=== PATIENT | male | born 1980 | race African-American/Black ===

== ENCOUNTER 2019-03-11 16:38 | Emergency (ER) | payer OTHER ==
[~2019-03-11] VITALS: Ht 180.3 cm; Wt 88.5 kg
[2019-03-11] MEDS ORDERED: NORFLEX100 MG PO (17:59)
[2019-03-11] MEDS ORDERED: NAPROSYN500 MG PO (17:59)
[2019-03-11 18:18] VITALS: BP 140/87
== END 2019-03-11 18:20 | disposition home or self-care (01) ==
LOC: ER 16:38
DX: S39.012A Strain of muscle, fascia and tendon of lower back, initial encounter (principal); S46.912A Strain of unspecified muscle, fascia and tendon at shoulder and upper arm level, left arm, initial encounter; S16.1XXA Strain of muscle, fascia and tendon at neck level, initial encounter; V43.52XA Car driver injured in collision with other type car in traffic accident, initial encounter; Y93.I9 Activity, other involving external motion; Y92.410 Unspecified street and highway as the place of occurrence of the external cause; Y99.8 Other external cause status

== ENCOUNTER 2019-11-02 19:46 | Inpatient (IN) | payer OTHER ==
[~2019-11-02] VITALS: Ht 180.3 cm; Wt 83.6 kg
[~2019-11-02 19:46] MED LIST: NAPROSYN500 MG PO; NORFLEX100 MG PO
[2019-11-02 20:23] LABS: AMP/METHAMP Negative (Negative); BARBITURATES Negative (Negative); BENZODIAZEPINES Negative (Negative); COCAINE Negative (Negative); METHADONE Negative (Negative); OPIATES Negative (Negative); PCP Negative (Negative)
[2019-11-02 21:25] LABS: HEMATOCRIT 41.6 % (42.0-52.0); HEMOGLOBIN 13.6 gm/dL (14.0-18.0); MCH 29.8 pg (26.0-34.0); MCHC 32.8 g/dL (28.0-37.0); RBC 4.57 mil/uL (4.50-6.00); RDW 14.6 % (10.5-14.5); WBC 20.4 thou/uL (4.0-11.0)
--- NOTE | 2019-11-02 21:35 | NUR ---
PERMISSION TO TELL MOTHER PT IS HERE OBTAINED FROM PT
[2019-11-02 21:41] LABS: ANION GAP 16 mmol/L (7-16); BUN 13 mg/dL (7-18); CHLORIDE 102 mmol/L (98-107); CO2 21 mmol/L (21-32); CREATININE 1.5 mg/dL (0.7-1.3); GLUCOSE 85 mg/dL (74-106); POTASSIUM 4.1 mmol/L (3.5-5.1); SODIUM 139 mmol/L (136-145)
[2019-11-02 21:46] LABS: ALBUMIN 4.5 g/dL (3.4-5.0); DIRECT BILIRUBIN < 0.1 mg/dL (<0.1-0.2); SGOT 38 U/L (15-37); SGPT 38 U/L (30-65); TOTAL BILIRUBIN 0.3 mg/dL (<0.1-1.0); TOTAL PROTEIN 8.2 g/dL (6.4-8.2); TROPONIN-I <0.06 ng/mL (<0.06)
[2019-11-03 05:47] VITALS: BP 115/69
[2019-11-03 05:59] VITALS: BP 115/56
[2019-11-03 06:02] LABS: CSF GLUCOSE 70 mg/dL (40-70)
[2019-11-03 06:25] VITALS: BP 141/81
[2019-11-03 07:06] LABS: CSF CLARITY CLEAR; CSF COLOR COLORLESS; VOLUME 16 ml
[2019-11-03 07:07] LABS: CSF EOSINOPHILS 0 %; CSF LYMPHOCYTES 1 %; CSF MONOCYTES 6; CSF POLYS 91; CSF POLYS 91 %; CSF RBC 13 /mm3
[2019-11-03 07:11] LABS: CSF WBC 155 /mm3 (0-10)
--- NOTE | 2019-11-03 07:25 | NUR ---
PT ADMITTED FROM ED VIA CART.A/OX4,FOLLOWS COMMANDS APPROPRIATELY.VSS.ON RA W/O RESP DISTRESS,SR ON MONITOR.ORIENTED TO RM AND UNIT ACTIVITIES.ASSESSMENT COMPLETED DOCUMENTED.DENIES CURRENT MEDS.NO CONCERNS VOICED AT THIS TIME.WILL CONT TO MONITOR PER POC.
--- NOTE | 2019-11-03 10:56 | NUR ---
ASSUMED CARE OF PATIENT AT 0700. ASSESSMENT COMPLETED. PATIENT GOT OUT OF BED, TAKING OFF TELE LEADS AND GOWN, WALKING TO THE NURSE'S DESK 'NAKED' STATING THAT HIS BED ALARM WAS GOING OFF. PATIENT TAKEN BACK TO HIS ROOM, BED ALARM TURNED OFF AND PATIENT SETTLED BACK IN BED WITH TELE. CRITICAL CSF CALLED TO DR. ELAM. DR. ELAM CAME ON THE UNIT AND SAW PATIENT. PATIENT DECIDED TO LEAVE AMA. PATIENT CALLED HIS KID'S MOM TO COME GET HIM AND BRING HIM CLOTHES, YELLING AND CURSING. AMA FORM SIGNED, TELE REMOVED AND IV REMOVED. PATIENT DENIES ANY COMPLAINTS AND STATES HE'S, "ALL BETTER". PATIENT'S MOTHER CAME TO [employer] OPERATOR THE PATIENT AND WAS VERY UPSET WITH HIM FOR LEAVING. PATIENT WALKED OFF THE UNIT WITH HIS MOTHER TO BE DRIVEN HOME IN A PERSONAL VEHICLE.
--- NOTE | 2019-11-03 15:20 | EKG ---
[address] [address] ELECTROCARDIOGRAM REPORT Name: TESS ALMENDAREZ Room #: 208-P [facility] M.R.#: [id number] Admission: 11/03/19 Attend Phys: Catarino Lyn MD Discharge: 11/03/19 Date of : 80 Report #: [id number] THIS REPORT FOR: //name// [facility] ED Test Date: 2019-11-02 Test Time: 21:35:45 Pat Name: TESS ALMENDAREZ Department: Room: 208 Gender: M Pulp Tester: [id number] : 1980 Requested By: Blas Cody Order Number: [id number] MD: Anjum Encinas Measurements Intervals [place] Rate: 125 P: 84 VT: 129 QRS: 75 QRSD: 86 T: -18 QT: 294 QTc: 424 Interpretive Statements Sinus tachycardia Right atrial abnormality Borderline T abnormalities, inferior leads ST elev, probable normal early repol pattern No previous ECG available for comparison Electronically Signed On 11-03-2019 15:19:34 ELDER COUNSELOR by Anjum Encinas [email or web address] <ELECTRONICALLY SIGNED> By: Anjum Encinas MD, [facility] 11/03/19 1519 34 Anjum Encinas MD, [facility] /EPI
== END 2019-11-03 09:48 | disposition left against medical advice (07) | DRG 683 ==
LOC: ER 19:46 → EROBS 11-03 05:32 → 2N 11-03 06:06
PROVIDERS: Emergency Medicine; ADMIT Internal Medicine
PROC: 009U3ZX Drainage of Spinal Canal, Percutaneous Approach, Diagnostic (ICD-10-PCS; principal; 2019-11-02)
DX: N17.9 Acute kidney failure, unspecified (principal); G40.89 Other seizures; M62.82 Rhabdomyolysis; E87.2 Acidosis; I10 Essential (primary) hypertension; Z53.29 Procedure and treatment not carried out because of patient's decision for other reasons
CPT/HCPCS: 10081

== ENCOUNTER 2020-07-28 05:17 | Emergency (ER) | payer OTHER ==
[~2020-07-28] VITALS: Ht 180.3 cm; Wt 88.5 kg
[2020-07-28] MEDS ORDERED: KEPPRA PO (05:21)
[2020-07-28] MEDS ORDERED: KEPPRA XR500 MG PO ×2 (05:34→05:35)
[2020-07-28] MEDS ORDERED: LAMOTRIGINE250 MG PO (05:34)
[2020-07-28 05:40] LABS: ABSOLUTE NEUTROPHILS 5.5 thou/uL (1.4-8.2); BASOPHILS 0.7 % (0.0-2.0); EOSINOPHILS 2.2 % (0.0-3.0); HEMATOCRIT 42.6 % (42.0-52.0); HEMOGLOBIN 13.9 gm/dL (14.0-18.0); LYMPHOCYTES 32.5 % (24.0-44.0); MCH 30.1 pg (26.0-34.0); MCHC 32.7 g/dL (28.0-37.0); MCV 91.9 fL (80.0-100.0); MONOCYTES 8.3 % (1.0-8.0); PLATELET COUNT 264 thou/uL (150-400); POLYS 56.3 % (36.0-66.0); RBC 4.63 mil/uL (4.50-6.00); RDW 14.2 % (10.5-14.5); WBC 9.7 thou/uL (4.0-11.0)
[2020-07-28 05:48] LABS: CALCIUM 8.8 mg/dL (8.5-10.1); CREATININE 1.2 mg/dL (0.7-1.3); POTASSIUM 3.8 mmol/L (3.5-5.1)
[2020-07-28 05:54] LABS: ALBUMIN 4.1 g/dL (3.4-5.0); TOTAL BILIRUBIN 0.2 mg/dL (0.2-1.0); TOTAL PROTEIN 7.8 g/dL (6.4-8.2)
[2020-07-28 06:32] LABS: AMP/METHAMP Negative (Negative); BARBITURATES Negative (Negative); BENZODIAZEPINES Negative (Negative); COCAINE Negative (Negative); METHADONE Negative (Negative); OPIATES Negative (Negative); PCP Negative (Negative)
[2020-07-28 06:35] LABS: URINE BILIRUBIN NEGATIVE (Negative); URINE BLOOD 1+ (Negative); URINE CLARITY CLEAR; URINE COLOR YELLOW; URINE GLUCOSE-RANDOM* NEGATIVE (Negative); URINE KETONES NEGATIVE (Negative); URINE LEUKOCYTES-REFLEX NEGATIVE (Negative); URINE NITRITE-REFLEX NEGATIVE (Negative); URINE PROTEIN (DIPSTICK) TRACE (Negative); URINE SPECIFIC GRAVITY >= 1.030 (1.005-1.035); URINE UROBILINOGEN 0.2 E.U./dl (0.2-1.0)
[2020-07-28] MEDS ORDERED: KEPPRA 500 MG500 M1 PO (06:47)
[2020-07-28 06:52] LABS: BACTERIA-REFLEX 1-9 Few /HPF (None Seen); CASTS None Seen /LPF (None Seen); CRYSTALS None Seen /LPF (None Seen); SQUAMOUS 0-3 Few /LPF (0-3); URINE WBC-REFLEX 0-5 Rare /HPF (0-5)
[2020-07-28 06:53] LABS: URINE RBC 0-2 Rare /HPF (0-2)
[2020-07-28 06:54] VITALS: BP 140/73
--- NOTE | 2020-07-28 08:07 | EKG ---
[facility] [place] [address] ELECTROCARDIOGRAM REPORT Name: TESS ALMENDAREZ Room #: DEP [facility]#: [id number] Admission: 07/28/20 Attend Phys: Discharge: 07/28/20 Date of : 80 Report #: [id number] THIS REPORT FOR: cc: JUAN M - No family physician/PCP JUAN M - Elisha family physician/PCP Anjum Encinas MD [facility] THIS REPORT FOR: //name// [facility] ED Test Date: 2020-07-28 Test Time: 05:48:47 Pat Name: TESS ALMENDAREZ Department: Room: Gender: Glassie: [facility] : 1980 Requested By: Ryan Rodney Order Number: [id number] MD: Anjum Encinas Measurements Intervals [place] Rate: 71 P: 16 HI: 121 QRS: 56 QRSD: 95 T: -10 QT: 360 QTc: 392 Interpretive Statements Sinus rhythm Borderline T abnormalities, inferior leads Baseline wander in lead(s) V2 Compared to ECG 11/02/2019 21:35:45 Sinus tachycardia no longer present Electronically Signed On 07-28-2020 8:07:46 CDT by Anjum Encinas [email or web address] <ELECTRONICALLY SIGNED> By: Anjum Encinas MD, [facility] 07/28/20 0807 [id number] [id number] Anjum Encinas MD, [facility] /EPI
== END 2020-07-28 07:45 | disposition home or self-care (01) ==
LOC: ER 05:17
PROVIDERS: Emergency Medicine
DX: G40.409 Other generalized epilepsy and epileptic syndromes, not intractable, without status epilepticus (principal); Z79.899 Other long term (current) drug therapy

== ENCOUNTER 2020-09-01 09:09 | Emergency (ER) | payer OTHER ==
[~2020-09-01 09:09] MED LIST changes: +KEPPRA 500 MG500 M1 PO; +KEPPRA PO; +KEPPRA XR500 MG PO; +LAMOTRIGINE250 MG PO
== END 2020-09-01 09:23 | disposition left against medical advice (07) ==
LOC: ER 09:09
DX: R56.9 Unspecified convulsions (principal); Z53.21 Procedure and treatment not carried out due to patient leaving prior to being seen by health care provider